=== PATIENT | female | born 1945 | race Caucasian/White ===

== ENCOUNTER → 2017-05-20 | Outpatient (CLI) | payer MEDICARE, BC ==
--- NOTE | 2017-05-20 17:23 | US ---
EXAMINATION TYPE: US carotid duplex BILAT DATE OF EXAM: 05/20/2017 COMPARISON: NONE CLINICAL HISTORY: Z86.73 Hx of TIA. Memory loss EXAM MEASUREMENTS: RIGHT: Peak Systolic Velocity (PSV) cm/sec ----- Right CCA: 73.2 ----- Right ICA: 87.5 ----- Right ECA: 118.2 ICA/CCA ratio: 1.2 RIGHT: End Diastole cm/sec ----- Right CCA: 11.7 ----- Right ICA: 11.7 ----- Right ECA: 23.7 LEFT: Peak Systolic Velocity (PSV) cm/sec ----- Left CCA: 80.0 ----- Left ICA: 71.2 ----- Left ECA: 130.3 ICA/CCA ratio: 0.9 LEFT: End Diastole cm/sec ----- Left CCA: 17.1 ----- Left ICA: 16.3 ----- Left ECA: 12.5 VERTEBRALS (direction of flow): Right Vertebral: Antegrade Left Vertebral: Antegrade Mild homogeneous plaque with no significant stenosis seen IMPRESSION: There is antegrade flow in the vertebral arteries. The images and measurements suggest 2 5% stenosis in both internal carotid arteries. Criteria for Assigning % of Stenosis / Diameter reduction (Estimation based on the indirect measurements of the internal carotid artery velocities (ICA PSV). 1. Normal (no stenosis)=ICA PSV < 125 cm/s: ratio < 2.0: ICA EDV<40 cm/s. 2. Less than 50% stenosis=ICA PSV < 125 cm/s: ratio < 2.0: ICA EDV<40 cm/s. 3. 50 to 69% stenosis=ICA PSV of 125 to 230 cm/s: ration 2.0 ? 4.0: ICA EDV 40-100 cm/s. 4. Greater than 70% stenosis to near occlusion= ICA PSV > 230 cm/s: ratio > 4.0: ICA EDV > 100 cm/s. 5. Near occlusion= ICA PSV velocities may be low or undetectable: variable ratio and ICA EDV. 6. Total occlusion=unable to detect flow.
== END | disposition home or self-care (01) ==
LOC: RADUSWWP 16:47
PROVIDERS: ATTEND Family Medicine
DX: F41.8 Other specified anxiety disorders (principal); Z86.73 Personal history of transient ischemic attack (TIA), and cerebral infarction without residual deficits
CPT/HCPCS: 93880

== ENCOUNTER → 2017-05-25 | Outpatient (CLI) | payer MEDICARE, BC ==
--- NOTE | 2017-05-27 09:13 | MM ---
Reason for exam: screening (asymptomatic). Last mammogram was performed 1 year ago. History: Patient is postmenopausal. Physical Findings: A clinical breast exam by your physician is recommended on an annual basis and results should be correlated with mammographic findings. MG 3D Screening Mammo W/Cad Bilateral CC and MLO view(s) were taken. Prior study comparison: May 18, 2016, bilateral MG 3d screening mammo w/cad. The breast tissue is extremely dense which could obscure a lesion on mammography. No suspicious abnormality. No significant changes when compared with prior studies. ASSESSMENT: Negative, BI-RAD 1 RECOMMENDATION: Routine screening mammogram of both breasts in 1 year.
== END ==
LOC: RADMAMWWP 08:23
PROVIDERS: ATTEND Family Medicine
DX: Z12.31 Encounter for screening mammogram for malignant neoplasm of breast (principal)
CPT/HCPCS: 77063; G0202

== ENCOUNTER → 2018-01-24 | Outpatient (CLI) | payer MEDICARE, BC ==
[~2018-01-24] MED LIST: DENOSUMAB 60 MG/ML 1 ML SYRINGE SQ ONE
[2018-01-24 11:00] VITALS: BP 174/81; PULSE 88; RESP 16; TEMP 97.7
== END | disposition home or self-care (01) ==
LOC: PROCWHC3 10:39
PROVIDERS: ATTEND Family Medicine
DX: M81.0 Age-related osteoporosis without current pathological fracture (principal)
CPT/HCPCS: 96372; J0897

== ENCOUNTER → 2018-03-21 | Outpatient (CLI) | payer MEDICARE, BC ==
--- NOTE | 2018-03-21 13:23 | P.STRESS ---
- Stress Test Note Stress Test Results/Findings: Exam Performed: stress echo exercise Exam Date: 03/21/18 Reason for Exam: ABN EKG Height: 5 ft 4 in Weight: 56.699 kg Protocol: ARIELLE Stage: 1 Duration of Exercise: 2:00 Resting Heart Rate: 88 Resting Blood Pressure: 151/85 Maximum Achieved Heart Rate: 147 Maximum Achieved Blood Pressure: 158/59 85% PMHR: 127 100% PMHR: 149 METS: 1.0 Technologist Comment: Stress Test Results/Findings: This is a 72-year-old female being evaluated for symptoms of shortness of breath. Patient is known to have abnormal EKG and hypertension. Stress data: Baseline EKG showed sinus rhythm with normal W[place] and QRS duration with occasional PVCs and minor nonspecific ST-T abnormalities in inferolateral leads. Blood pressure at rest is 151/85 with pulse rate of 88. Patient walked on the Arielle protocol for 2 minutes, achieving a maximal heart rate of 147 with a blood pressure of 151/85. EKGs during and after the exercise continued to show more possible ST-T changes in inferolateral leads. Compared to the baseline with occasional PVCs. Patient did not experience any chest pain. Echo data: Baseline echo images show normal wall motion and thickening. Exercise echo images showed augmentation of wall motion and thickening in all the segments except anterior wall. Ischemia in the anterior wall cannot be excluded. Final impression #1. Nondiagnostic stress test because of baseline EKG abnormalities. #2. Limited exercise capacity #3. Ischemia in the anterior wall cannot be excluded because of lack of augmentation compared to the other segment. May consider a nuclear stress test or cardiac catheterization for diagnosis #4. No arrhythmias are detected
--- NOTE | 2018-03-21 14:02 | ECHOF ---
Referral Reason:R94.31 Abn EKG MEASUREMENTS -------- HEIGHT: 162.6 cm WEIGHT: 56.7 kg BP: RVIDd: 2.8 cm (< 3.3) IVSd: 1.2 cm (0.6 - 1.1) LVIDd: 4.4 cm (3.9 - 5.3) LVPWd: 1.2 cm (0.6 - 1.1) IVSs: 1.2 cm LVIDs: 3.4 cm LVPWs: 1.3 cm LA Diam: 3.5 cm (2.7 - 3.8) LAESV Index (A-L): 29.13 ml/m Ao Diam: 3.2 cm (2.0 - 3.7) AV Cusp: 1.5 cm (1.5 - 2.6) LA Diam: 2.7 cm (2.7 - 3.8) MV EXCURSION: 17.701 mm (> 18.000) MV EF SLOPE: 93 mm/s (70 - 150) EPSS: 0.9 cm MV E Oj: 0.76 m/s MV DecT: 150 ms MV A Oj: 0.70 m/s MV E/A Ratio: 1.09 RAP: 5.00 mmHg RVSP: 13.79 mmHg FINDINGS -------- Undetermined rhythm. This was a technically adequate study. The left ventricular size is normal. There is mild concentric left ventricular hypertrophy. Overa ll left ventricular systolic function is low-normal with, an EF between 50 - 55 %. The right ventricle is normal in size. The left atrial size is normal. LA is midly dilated 29-33ml/m2. The right atrial size is normal. There is mild aortic valve sclerosis. There is no evidence of aortic regurgitation. Mild mitral annular calcification present. Mild mitral regurgitation is present. Mild tricuspid regurgitation present. There is no evidence of pulmonary hypertension. The right v entricular systolic pressure, as measured by Doppler, is 13.79mmHg. There is no pulmonic regurgitation present. The aortic root size is normal. There is no pericardial effusion. CONCLUSIONS -------- 1. The left ventricular size is normal. 2. There is mild concentric left ventricular hypertrophy. 3. Overall left ventricular systolic function is low-normal with, an EF between 50 - 55 %. 4. The right ventricle is normal in size. 5. The left atrial size is normal. 6. LA is midly dilated 29-33ml/m2. 7. The right atrial size is normal. 8. There is mild aortic valve sclerosis. 9. Mild mitral annular calcification present. 10. Mild mitral regurgitation is present. 11. Mild tricuspid regurgitation present. 12. There is no evidence of pulmonary hypertension. 13. The right ventricular systolic pressure, as measured by Doppler, is 13.79mmHg. 14. There is no pulmonic regurgitation present. 15. The aortic root size is normal. 16. There is no pericardial effusion. FAILURE ANALYSIS TECHNICIAN: Mary Escobedo RDCS
== END ==
LOC: RADNMMAIN 09:55
PROVIDERS: ATTEND Family Medicine
DX: I08.3 Combined rheumatic disorders of mitral, aortic and tricuspid valves (principal)
CPT/HCPCS: 93306; 93351

== ENCOUNTER → 2018-04-18 | Outpatient (CLI) | payer MEDICARE, BC ==
[2018-04-18 13:02] LABS: HCT 39.3 % (34.0-46.0); HGB 12.4 gm/dL (11.4-16.0); MCH 29.4 pg (25.0-35.0); MCHC 31.7 g/dL (31.0-37.0); MCV 92.8 fL (80.0-100.0); Mean Platelet Volume 6.6; Platelet Count 268 k/uL (150-450); RBC 4.23 m/uL (3.80-5.40); RDW 13.1 % (11.5-15.5); WBC 10.4 k/uL (3.8-10.6)
[2018-04-18 13:26] LABS: Potassium 4.5 mmol/L (3.5-5.1)
== END ==
LOC: LABPAT 12:33
PROVIDERS: ATTEND Internal Medicine Interventional Cardiology
DX: Z01.812 Encounter for preprocedural laboratory examination (principal); R07.9 Chest pain, unspecified
CPT/HCPCS: 36415; 80051; 82565; 84520; 85027

== ENCOUNTER 2018-04-25 10:33 | Day surgery (SDC) | payer MEDICARE, BC ==
[~2018-04-25 10:33] MED LIST changes: +ALPRAZolam 0.25 MG TAB PO PRN; +ASPIRIN 325 MG TAB PO ONE; +ATORVASTATIN 80 MG TAB PO STA; -DENOSUMAB 60 MG/ML 1 ML SYRINGE SQ ONE; +SODIUM CHLORIDE 0.9% 1,000 ML in EMPTY BAG 1 BAG IV ONE
[2018-04-25] MEDS ORDERED: SODIUM CHLORIDE 0.9% 1,000 ML IV ONE (11:01)
[2018-04-25 11:14] VITALS: TEMP 98.8
[2018-04-25] MEDS ORDERED: VERAPAMIL 2.5 MG/ML 2 ML AMP ONE (12:06)
[2018-04-25] MEDS ORDERED: fentaNYL (PF) 50 MCG/ML 2 ML AMP ONE (12:06)
[2018-04-25] MEDS ORDERED: fentaNYL (PF) 50 MCG/ML 2 ML AMP IV ONE (12:26)
[2018-04-25] MEDS ORDERED: LIDOCAINE 2% SYG (PF) 100 MG/5 ML MISCELLANE ONE (12:29)
[2018-04-25] MEDS ORDERED: VERAPAMIL SYRINGE (5 MG/10 ML) INTRAARTER ONE (12:32)
[2018-04-25] MEDS ORDERED: HEPARIN SODIUM 1,000 UN/ML (10ML VL) ONE (12:36)
[2018-04-25] MEDS ORDERED: HEPARIN SODIUM 1,000 UN/ML (10ML VL) IV ONE (12:40)
[2018-04-25] MEDS ORDERED: IOPAMIDOL-370 125ML BTL INJ ONE (12:43)
[2018-04-25] MEDS ORDERED: METOPROLOL TARTRATE 5 MG/5 ML VIAL IVP ONE ×3 (12:45→14:15)
[2018-04-25] MEDS ORDERED: RX INFO: IV CONTRAST WAS GIVEN 1 EACH MISC MISCELLANE PRN (13:06)
[2018-04-25] MEDS ORDERED: METOPROLOL TARTRATE 25 MG TAB PO SCH (13:15)
[2018-04-25] MEDS ORDERED: SODIUM CHLORIDE 0.9% 1,000 ML IV SCH (13:15)
[2018-04-25] MEDS ORDERED: ATORVASTATIN 40 MG TAB PO SCH (13:15)
--- NOTE | 2018-04-25 13:53 | CC ---
CARDIAC CATHETERIZATION REPORT Mrs. Smith is a 72-year-old female who has no prior documented history of coronary artery disease who has a history of hypertension, and recently diagnosed hyperlipidemia, history of TIA, who underwent a stress echocardiogram when she walks for 2 minutes and she was reported to having anterior wall ischemia. In view of that, recommendation made regarding cardiac catheterization. The procedures, risks and complications were discussed with the patient who is in full understanding and agreement. PROCEDURE: Patient was brought to the carpenter labor supervisor in a fasting semi-sedated state after receiving fentanyl and Benadryl and achieving moderate conscious sedated state. Using Xylocaine anesthesia and Seldinger technique, a 6-Bengali sheath was introduced in the right radial artery. Selective right and left angiography performed using 5-Bengali 3.5 bend right and left Tere catheter, multiple views of the right coronary artery including hemiaxial views were obtained. Following that, a 5-Bengali tight pigtail catheter was introduced in the left ventricle and a 30 degree RODRIGUEZ view of the left ventricle was obtained. Following that, catheter and sheaths were removed. Hemostasis was obtained with deployment of a TR band. There was no immediate complication. Patient was returned to room in stable condition. FINDINGS: LEFT MAIN: This is a non-existing vessel that bifurcates immediately to LAD and left circumflex. LEFT ANTERIOR DESCENDING ARTERY: This is a large-sized vessel reaching toward the apex, was giving rise to a large diagonal branch. The vessel is tortuous throughout the course but it has no evidence of high-grade stenosis. LEFT CIRCUMFLEX: This is a nondominant vessel giving rise to a large obtuse marginal branch. The left circumflex as well as branches have no evidence of obstructive coronary artery disease. RIGHT CORONARY ARTERY: This is a dominant vessel, large in caliber, bifurcating into PDA posterolateral segment branches. The PDA reaches toward the inferoapical wall. The right coronary artery as well as branches have no evidence of obstructive coronary artery disease. LEFT VENTRICULOGRAM: Left ventriculogram is performed in 30 degree RODRIGUEZ view and revealed normal left ventricular size and systolic function. There was no significant mitral regurgitation. HEMODYNAMICS: There was no gradient across the aortic valve. The left ventricle end- diastolic pressure was 12 to 16 mmHg. CONCLUSION: 1. Normal coronary arteries. 2. Normal left ventricular size and systolic function. 3. Episode of atrial fibrillation during the procedure. RECOMMENDATION: Patient be continued on present medical therapy with the aggressive risk modification her rhythm will be followed and if needed, anticoagulation will be initiated. Those findings and recommendation were discussed with the patient and her family and they are in full understanding and agreement. Duration of the procedure is 19 minutes. PRIYANK / ALDAIR: [id number] /
[2018-04-25] MEDS ORDERED: METOPROLOL TARTRATE 25 MG TAB PO STA (14:11)
[2018-04-25 19:48] VITALS: BP 112/58; PULSE 95; RESP 18
[2018-04-26] MEDS ORDERED: LOSARTAN 50 MG TAB PO SCH (09:00)
[2018-04-26] MEDS ORDERED: NON-FORMULARY DRUG (Aspirin [Adult Low Dose Aspirin Ec] 81 MG) PO SCH (09:00)
[2018-04-26] MEDS ORDERED: MULTIVITAMINS, THERA 1 EACH TAB PO SCH (09:00)
[2018-04-26] MEDS ORDERED: NON-FORMULARY DRUG (Calcium Carbonate [Calcium] 1 TAB) PO SCH (09:00)
== END 2018-04-25 18:15 | disposition home or self-care (01) ==
LOC: CATHCVL 10:33
PROVIDERS: ATTEND Internal Medicine Interventional Cardiology
DX: I77.1 Stricture of artery (principal); R94.39 Abnormal result of other cardiovascular function study; I10 Essential (primary) hypertension; I48.91 Unspecified atrial fibrillation; R09.89 Other specified symptoms and signs involving the circulatory and respiratory systems; Z87.891 Personal history of nicotine dependence; Z79.82 Long term (current) use of aspirin; Z79.899 Other long term (current) drug therapy
CPT/HCPCS: 93458; C1894; C1769; J2001; J3010; J1644; Q9967

== ENCOUNTER → 2018-07-04 | Outpatient (CLI) | payer MEDICARE, BC ==
[2018-07-04 12:20] LABS: ALT 33 U/L (9-52); AST 29 U/L (14-36); Cholesterol 146 mg/dL (<200); HDL Cholesterol 62 mg/dL (40-60); LDL Cholesterol,Calculated 69 mg/dL (0-99); Triglycerides 77 mg/dL (<150)
== END | disposition home or self-care (01) ==
LOC: LABWHC1 10:44
PROVIDERS: ATTEND Internal Medicine Interventional Cardiology
DX: E78.2 Mixed hyperlipidemia (principal)
CPT/HCPCS: 36415; 80061; 84450; 84460

== ENCOUNTER → 2018-07-27 | Outpatient (CLI) | payer MEDICARE, BC ==
[~2018-07-27] MED LIST changes: -ALPRAZolam 0.25 MG TAB PO PRN; -ASPIRIN 325 MG TAB PO ONE; -ATORVASTATIN 80 MG TAB PO STA; +DENOSUMAB 60 MG/ML 1 ML SYRINGE SQ ONE; -SODIUM CHLORIDE 0.9% 1,000 ML in EMPTY BAG 1 BAG IV ONE
[2018-07-27 10:41] VITALS: BP 186/79; PULSE 57; RESP 18; TEMP 97.5
== END | disposition home or self-care (01) ==
LOC: PROCWHC3 10:21
PROVIDERS: ATTEND Family Medicine
DX: M81.0 Age-related osteoporosis without current pathological fracture (principal)
CPT/HCPCS: 96372; J0897

== ENCOUNTER → 2018-09-16 | Outpatient (CLI) | payer MEDICARE, BC ==
--- NOTE | 2018-09-16 10:22 | MR ---
EXAMINATION TYPE: MR brain wo con DATE OF EXAM: 09/16/2018 10:06 AM. COMPARISON: NONE. HISTORY: Memory loss. Technique: Multiplanar, multiecho imaging of the brain was obtained without intravenous contrast. FINDINGS: Midline structures are unremarkable. There is a normal craniocervical junction. Echoplanar diffusion imaging is unremarkable. There are normal vascular flow voids. The orbits are unremarkable. There is no evidence of a CP angle mass lesion. There is both punctate and confluent periventricular white matter change is likely represents a combi nation of small vessel disease and chronic white matter ischemic change. There is no mass effect, mid line shift or intracranial blood. IMPRESSION: 1. NO ACUTE INTRACRANIAL ABNORMALITY. 2. BOTH PUNCTATE AND CONFLUENT PERIVENTRICULAR WHITE MATTER CHANGE COMPATIBLE WITH SMALL VESSEL DISEA SE AND CHRONIC WHITE MATTER ISCHEMIC CHANGE.
== END | disposition home or self-care (01) ==
LOC: RADMRIMAIN 09:27
PROVIDERS: ATTEND Psychiatry & Neurology Neurology
DX: R90.89 Other abnormal findings on diagnostic imaging of central nervous system (principal); R41.3 Other amnesia
CPT/HCPCS: 70551

== ENCOUNTER → 2018-12-27 | Outpatient (CLI) | payer MEDICARE, BC ==
[2018-12-27 16:45] LABS: Albumin 4.4 g/dL (3.80-4.90); Albumin/Globulin Ratio 1.91 (1.60-3.17); Calcium 9.6 mg/dL (8.7-10.3); Globulin 2.3 g/dL (1.6-3.3); LDL Cholesterol,Calculated 54.4 mg/dL (0.0-131.0); Potassium 4.3 mmol/L (3.5-5.5); Total Bilirubin 0.6 mg/dL (0.3-1.2); Total Protein 6.7 g/dL (6.2-8.2); VLDL Calculation 11.6 mg/dL (5.00-40.00)
== END | disposition home or self-care (01) ==
LOC: LABWHC1 10:55
PROVIDERS: ATTEND Internal Medicine Interventional Cardiology
DX: E78.2 Mixed hyperlipidemia (principal)
CPT/HCPCS: 36415; 80053; 80061

== ENCOUNTER → 2019-11-19 | Outpatient (CLI) | payer MEDICARE, BC ==
[2019-11-19 11:37] LABS: African American GFR (CKD) 57.7 (60.0-200.0); Albumin 4.3 g/dL (3.80-4.90); Albumin/Globulin Ratio 1.95 (1.60-3.17); Anion Gap 5.6 mmol/L (4.00-12.00); BUN/Creat Ratio 21.82 Ratio (12.00-20.00); Calcium 9.6 mg/dL (8.7-10.3); Carbon Dioxide 29.4 mmol/L (21.6-31.8); Chol/HDL Ratio 2.29; Globulin 2.2 g/dL (1.6-3.3); Non-African American GFR(CKD) 49.8 (60.0-200.0); Potassium 4.1 mmol/L (3.5-5.5); Total Bilirubin 0.6 mg/dL (0.3-1.2); Total Protein 6.5 g/dL (6.2-8.2)
== END | disposition home or self-care (01) ==
LOC: LABWHC1 07:07
PROVIDERS: ATTEND Internal Medicine Interventional Cardiology
DX: E78.2 Mixed hyperlipidemia (principal)
CPT/HCPCS: 36415; 80053; 80061

== ENCOUNTER 2021-01-13 08:28 | Emergency (ER) | payer MEDICARE, BC ==
[2021-01-13 08:42] VITALS: TEMP 97.4
--- NOTE | 2021-01-13 09:01 | ED ---
General Adult HPI - General Chief complaint: Altered Mental Status Stated complaint: Poss Stroke Time Seen by Provider: 01/13/21 08:49 Source: patient, family Mode of arrival: wheelchair Limitations: no limitations - History of Present Illness Initial comments: 75-year-old female with a past medical history of dementia, osteoporosis presents to the emergency room for a chief complaint of worsening confusion. Assisted-living facility where patient lives called patient's son to tell him that she had increased confusion. She was apparently attempting to crawl under the bed. Son reports that he saw her 2 days ago and she is significantly different today. States she is much more confused. States she has not had any previous similar episodes. Patient has not had any fevers. No cough.Patient has no other complaints at this time including shortness of breath, chest pain, abdominal pain, nausea or vomiting, headache, or visual changes. - Related Data Home Medications Medication Instructions Recorded Confirmed Aspirin [Adult Low Dose Aspirin EC] 81 mg PO DAILY@00 04/20/18 01/13/21 Losartan [Cozaar] 50 mg PO DAILY@69904/20/18 01/13/21 Atorvastatin [Lipitor] 40 mg PO HS@1900 01/13/21 01/13/21 Calcium Citrate/Vitamin D3 1 tab PO BID@0700,1900 01/13/21 01/13/21 [Citracal + D Maximum Caplet] Calcium/D3/Zinc/Copper/Dilan 1 tab PO DAILY@0700 01/13/21 01/13/21 [Citracal-D3 Maximum Plus Caplt] Metoprolol Tartrate [Lopressor] 25 mg PO BID@0700,1900 01/13/21 01/13/21 Multivit-Min/Iron/Folic/Lutein 1 tab PO DAILY@0700 01/13/21 01/13/21 [Centrum Silver Women Tablet] Nystatin 100,000Unit/gm Cream 1 applic TOPICAL BID PRN 01/13/21 01/13/21 [Mycostatin Cream] Triamcinolone 0.1% Cream [Kenalog 1 applic TOPICAL BID PRN 01/13/21 01/13/21 0.1% Cream] Allergies Allergy/AdvReac Type Severity Reaction Status Date / Time No Known Allergies Allergy Verified 01/13/21 10:42 Review of Systems ROS Statement: Those systems with pertinent positive or pertinent negative responses have been documented in the HPI. ROS Other: All systems not noted in ROS Statement are negative. Past Medical History Past Medical History: Dementia Additional Past Medical History / Comment(s): osteoporosis History of Any Multi-Drug Resistant Organisms: None Reported Additional Past Surgical History / Comment(s): kidney stone Past Anesthesia/Blood Transfusion Reactions: No Reported Reaction Past Psychological History: No Psychological Hx Reported Smoking Status: Never smoker - Past Family History Mother Family Medical History: Dementia Brother(s) Family Medical History: Cancer General Exam Limitations: no limitations General appearance: alert, in no apparent distress (sitting on chair with legs crossed well appearing.) Head exam: Present: atraumatic, normocephalic, normal inspection Eye exam: Present: normal appearance, PERRL, EOMI. Absent: scleral icterus, conjunctival injection, periorbital swelling ENT exam: Present: normal exam, mucous membranes moist Neck exam: Present: normal inspection, full ROM. Absent: tenderness, meningis mus, lymphadenopathy Respiratory exam: Present: normal lung sounds bilaterally. Absent: respiratory distress, wheezes, rales, rhonchi, stridor Cardiovascular Exam: Present: regular rate, normal rhythm, normal heart sounds. Absent: systolic murmur, diastolic murmur, rubs, gallop, clicks GI/Abdominal exam: Present: soft, normal bowel sounds. Absent: distended, tenderness, guarding, rebound, rigid Neurological exam: Present: alert. Absent: oriented X3 (Oriented to person) Course Vital Signs 01/13/21 01/13/21 08:33 11:17 Temperature 97.4 F L Pulse Rate 73 67 Respiratory 18 18 Rate Blood Pressure 155/65 O2 Sat by Pulse 94 L 96 Oximetry Medical Decision Making - Medical Decision Making vitals are stable. Patient is well-appearing. Patient is alert and oriented times one. She does have a history of dementia however has worsened in the past 2 days. No focal neurologic deficits. Patient is sitting in chair with legs crossed. CBC was obtained which showed leukocytosis. CMP unremarkable. Urinalysis is negative. Mccarty virus not detected. CT brain shows no acute intercranial process. Chest x-ray shows no evidence for acute pulmonary disease. At this time patient is stable for discharge home and follow-up with primary care. Patient lives in an assisted care facility and his son does feel that she will be safe in this facility as she is monitored all day. He will return here for any worsening symptoms. - Lab Data Result diagrams: 01/13/21 09:49 01/13/21 09:49 Lab Results 01/13/21 01/13/21 01/13/21 Range/Units 09:39 09:49 09:49 WBC 14.3 H (3.8-10.6) k/uL RBC 3.94 (3.80-5.40) m/uL Hgb 12.3 (11.4-16.0) gm/dL Hct 36.5 (34.0-46.0) % MCV 92.6 (80.0-100.0) fL MCH 31.2 (25.0-35.0) pg MCHC 33.6 (31.0-37.0) g/dL RDW 12.2 (11.5-15.5) % Plt Count 216 (150-450) k/uL MPV 8.1 Neutrophils % 80 % Lymphocytes % 14 % Monocytes % 4 % Eosinophils % 1 % Basophils % 0 % Neutrophils # 11.5 H (1.3-7.7) k/uL Lymphocytes # 2.0 (1.0-4.8) k/uL Monocytes # 0.6 (0-1.0) k/uL Eosinophils # 0.1 (0-0.7) k/uL Basophils # 0.0 (0-0.2) k/uL Sodium 141 (137-145) mmol/L Potassium 4.2 (3.5-5.1) mmol/L Chloride 107 (98-107) mmol/L Carbon Dioxide 26 (22-30) mmol/L Anion Gap 8 mmol/L BUN 31 H (7-17) mg/dL Creatinine 1.10 H (0.52-1.04) mg/dL Est GFR (CKD-EPI)AfAm 57 (>60 ml/min/1.73 sqM) Est GFR (CKD-EPI)NonAf 50 (>60 ml/min/1.73 sqM) Glucose 100 H (74-99) mg/dL POC Glucose (mg/dL) 103 H (75-99) mg/dL POC Glu Accounts Receivable Collector ID John Costello Calcium 10.0 (8.4-10.2) mg/dL Magnesium 2.1 (1.6-2.3) mg/dL Total Bilirubin 0.4 (0.2-1.3) mg/dL AST 33 (14-36) U/L ALT 27 (4-34) U/L Alkaline Phosphatase 124 (38-126) U/L Total Protein 7.2 (6.3-8.2) g/dL Albumin 4.2 (3.5-5.0) g/dL Urine Color Urine Appearance (Clear) Urine pH (5.0-8.0) Ur Specific [place] (1.001-1.035) Urine Protein (Negative) Urine Glucose (UA) (Negative) Urine Ketones (Negative) Urine Blood (Negative) Urine Nitrite (Negative) Urine Bilirubin (Negative) Urine Urobilinogen (<2.0) mg/dL Ur Leukocyte Esterase (Negative) Coronavirus (PCR) (Not Detectd) 01/13/21 01/13/21 Range/Units 11:21 11:21 WBC (3.8-10.6) k/uL RBC (3.80-5.40) m/uL Hgb (11.4-16.0) gm/dL Hct (34.0-46.0) % MCV (80.0-100.0) fL MCH (25.0-35.0) pg MCHC (31.0-37.0) g/dL RDW (11.5-15.5) % Plt Count (150-450) k/uL MPV Neutrophils % % Lymphocytes % % Monocytes % % Eosinophils % % Basophils % % Neutrophils # (1.3-7.7) k/uL Lymphocytes # (1.0-4.8) k/uL Monocytes # (0-1.0) k/uL Eosinophils # (0-0.7) k/uL Basophils # (0-0.2) k/uL Sodium (137-145) mmol/L Potassium (3.5-5.1) mmol/L Chloride (98-107) mmol/L Carbon Dioxide (22-30) mmol/L Anion Gap mmol/L BUN (7-17) mg/dL Creatinine (0.52-1.04) mg/dL Est GFR (CKD-EPI)AfAm (>60 ml/min/1.73 sqM) Est GFR (CKD-EPI)NonAf (>60 ml/min/1.73 sqM) Glucose (74-99) mg/dL POC Glucose (mg/dL) (75-99) mg/dL POC Glu Accounts Receivable Collector ID Calcium (8.4-10.2) mg/dL Magnesium (1.6-2.3) mg/dL Total Bilirubin (0.2-1.3) mg/dL AST (14-36) U/L ALT (4-34) U/L Alkaline Phosphatase (38-126) U/L Total Protein (6.3-8.2) g/dL Albumin (3.5-5.0) g/dL Urine Color Yellow Urine Appearance Clear (Clear) Urine pH 6.0 (5.0-8.0) Ur Specific [place] 1.022 (1.001-1.035) Urine Protein Trace H (Negative) Urine Glucose (UA) Negative (Negative) Urine Ketones Negative (Negative) Urine Blood Negative (Negative) Urine Nitrite Negative (Negative) Urine Bilirubin Negative (Negative) Urine Urobilinogen <2.0 (<2.0) mg/dL Ur Leukocyte Esterase Negative (Negative) Coronavirus (PCR) Not Detected (Not Detectd) Disposition Clinical Impression: Encephalopathy, Dementia Disposition: HOME SELF-CARE Condition: Good Instructions (If sedation given, give patient instructions): Altered Mental Status (ED), Dementia (ED) Additional Instructions: Please follow up with primary care. Patient has worsening symptoms return to the emergency room. Is patient prescribed a controlled substance at d/c from ED?: No Referrals: Aditya Munoz MD [Primary Care Provider] - 1-2 days Time of Disposition: 13:02
[2021-01-13 09:55] LABS: Glucose,Whole Blood 103 mg/dL (75-99)
[2021-01-13 10:15] LABS: Albumin 4.2 g/dL (3.5-5.0); Magnesium 2.1 mg/dL (1.6-2.3); Potassium 4.2 mmol/L (3.5-5.1); Total Bilirubin 0.4 mg/dL (0.2-1.3); Total Protein 7.2 g/dL (6.3-8.2)
--- NOTE | 2021-01-13 10:15 | CT ---
EXAMINATION TYPE: CT brain wo con DATE OF EXAM: 01/13/2021 COMPARISON: None HISTORY: altered mental status CT DLP: 1025.[address] of the brain was performed. The ventricles, basal cisterns and sulci overlying the cerebral convexities demonstrate mild enlargem ent. There is no evidence for intracranial hemorrhage or sulcal effacement. There is decreased attenuation about the periventricular white matter and deep white matter of both c erebral hemispheres, compatible with chronic small vessel ischemia. Differential diagnosis does inclu de demyelination. No mass effects are seen.No midline shift. Osseous calvarium is intact. If symptoms persist consider MRI. IMPRESSION: 1. Age related atrophic and chronic small vessel ischemic change without acute intracranial process s een at this time.
[2021-01-13 10:25] LABS: Basophils % (A) 0 %; Eosinophils # (A) 0.1 k/uL (0-0.7); Eosinophils % (A) 1 %; HCT 36.5 % (34.0-46.0); HGB 12.3 gm/dL (11.4-16.0); Lymphocytes % (A) 14 %; MCH 31.2 pg (25.0-35.0); MCHC 33.6 g/dL (31.0-37.0); MCV 92.6 fL (80.0-100.0); Mean Platelet Volume 8.1; Monocytes # (A) 0.6 k/uL (0-1.0); Monocytes % (A) 4 %; Neutrophils # (A) 11.5 k/uL (1.3-7.7); Neutrophils % (A) 80 %; Platelet Count 216 k/uL (150-450); RBC 3.94 m/uL (3.80-5.40); RDW 12.2 % (11.5-15.5); WBC 14.3 k/uL (3.8-10.6)
--- NOTE | 2021-01-13 10:53 | XR ---
EXAMINATION TYPE: XR chest 2V DATE OF EXAM: 01/13/2021 COMPARISON: NONE HISTORY: Shortness of breath TECHNIQUE: Frontal and lateral views of the chest are obtained. FINDINGS: Scattered senescent parenchymal changes noted. Hyperinflation compatible with COPD. No evidence for infiltrate. No evidence for atelectasis. Heart size is stable. Mediastinal structures are stable and grossly unremarkable. No evidence for hilar prominence. Degenerative changes dorsal spine. IMPRESSION: 1. No evidence for acute pulmonary disease.
[2021-01-13 11:42] LABS: Appearance,Urine Clear (Clear); Bilirubin,Urine Negative (Negative); Blood,Urine Negative (Negative); Color,Urine Yellow; Glucose,Urine (UA) Negative (Negative); Ketones,Urine Negative (Negative); Leukocyte Esterase,Urine Negative (Negative); Nitrite,Urine Negative (Negative); Protein,Urine Trace (Negative); Specific Gravity,Urine 1.022 (1.001-1.035); Urobilinogen,Urine <2.0 mg/dL (<2.0)
[2021-01-13 13:38] VITALS: BP 139/56; PULSE 50; RESP 12
== END 2021-01-13 13:30 | disposition home or self-care (01) ==
LOC: EC 08:28 → SUPCPDRO 08:28 → EC 13:30
DX: G93.40 Encephalopathy, unspecified (principal); D72.829 Elevated white blood cell count, unspecified; F03.90 Unspecified dementia, unspecified severity, without behavioral disturbance, psychotic disturbance, mood disturbance, and anxiety; Z20.822 Contact with and (suspected) exposure to COVID-19; Z79.899 Other long term (current) drug therapy
CPT/HCPCS: 36415; 70450; 71046; 80053; 81003; 83735; 85025; 87635; 93005; 99285